=== PATIENT | female | born 1970 | race American Indian/Alaskan Native ===

== ENCOUNTER → 2018-06-02 08:38 | Outpatient (CLI) | payer OTHER, SELFPAY ==
--- NOTE | 2018-06-02 | DI.RAD.S_ITS ---
PROCEDURE: XR LUMBAR SPINE 2-3V INDICATIONS: Lumbago with sciatica, right side TECHNIQUE: 3 views of the lumbar spine were acquired. COMPARISON: None. FINDINGS: Bones: There is appearance of transitional anatomy with lumbarization of what appears to be first sacral vertebral body. For purposes of this examination, lumbar vertebral bodies are labeled one through 5. Prior to any surgical intervention, full x-ray spine series is recommended for more accurate assessment and numbering. Minimal disc space narrowing is noted L1-L2, L2-3, L3-4 and L5-S1. Mild foraminal narrowing is noted at L5-S1 and S1-S2. No vertebral body compression fractures. No suspicious bony lesions. Soft tissues: Overlying bowel gas pattern is normal. No suspicious soft tissue calcifications. IMPRESSION: 1. Early degenerative changes as noted above. Transitional anatomy is present. Dictated by: Adele Ramírez M.D. on 06/02/2018 at 10:53 Approved by: Adele Ramírez M.D. on 06/02/2018 at 10:57
== END ==
PROVIDERS: PCP Physician Assistant; Visit Provider Chiropractor
DX: M54.41 Lumbago with sciatica, right side (principal); M99.03 Segmental and somatic dysfunction of lumbar region; M48.07 Spinal stenosis, lumbosacral region; M48.08 Spinal stenosis, sacral and sacrococcygeal region
CPT/HCPCS: 72100

== ENCOUNTER → 2018-10-15 14:13 | Outpatient (CLI) | payer OTHER, SELFPAY ==
--- NOTE | 2018-10-15 | DI.MG.S_ITS ---
BILATERAL DIGITAL SCREENING MAMMOGRAM 3D/2D WITH CAD: 10/15/2018 CLINICAL: Routine screening. Comparison is made to exams dated: 09/05/2016 mammogram, 05/11/2015 mammogram, and 04/21/2014 mammogram - [facility]. There are scattered fibroglandular elements in both breasts. Current study was also evaluated with a Computer Aided Detection (CAD) system. No significant masses, calcifications, or other findings are seen in either breast. There has been no significant interval change. IMPRESSION: NEGATIVE There is no mammographic evidence of malignancy. A 1 year screening mammogram is recommended. This exam was interpreted at Station ID: [id number]. NOTE: For mammograms, a report in lay terms will be sent to the patient. Approximately 15% of breast malignancies will not be visualized mammographically. In the management of a palpable breast mass, a negative mammogram must not discourage biopsy of a clinically suspicious lesion. Electronically Signed By: Andrzej Layne M.D. at/thomas:10/15/2018 14:57:21 letter sent: Normal Exam ACR BI-RADS Category 1: Negative 3341F
== END ==
PROVIDERS: PCP Physician Assistant; Visit Provider Physician Assistant
DX: Z12.31 Encounter for screening mammogram for malignant neoplasm of breast (principal)
CPT/HCPCS: 77063; 77067

== ENCOUNTER → 2018-11-03 15:58 | Outpatient (CLI) | payer OTHER, SELFPAY ==
--- NOTE | 2018-11-03 | DI.RAD.S_ITS ---
PROCEDURE: XR KNEE RT 3V INDICATIONS: RIGHT KNEE PAIN TECHNIQUE: 3 views of the knee were acquired. COMPARISON: [facility], , KNEE 3V RIGHT, 03/21/2015, 14:00. FINDINGS: Bones: No fractures or dislocations. No suspicious bony lesions. There is a moderate degree and medial compartment joint space narrowing, at the right knee. No acute trauma. Soft tissues: No joint effusion. No suspicious soft tissue calcifications. IMPRESSION: Moderate medial compartment knee joint osteoarthritis, also previously present in March of 2015 but to a slightly greater degree recently. No effusion or intra-articular loose body found. Dictated by: Александр Causey M.D. on 11/03/2018 at 16:23 Approved by: Александр Causey M.D. on 11/03/2018 at 16:32
== END ==
PROVIDERS: PCP Physician Assistant; Visit Provider Family Medicine
DX: M25.561 Pain in right knee (principal); M17.11 Unilateral primary osteoarthritis, right knee
CPT/HCPCS: 73562

== ENCOUNTER 2019-08-05 06:52 | Day surgery (SDC) | payer OTHER, SELFPAY ==
--- NOTE | 2019-08-05 | PATH_ITS ---
[facility] Accession Number: [id number] . 01 Material submitted: . PART A: colon - COLON POLYP AT 50 CM PART B: colon - COLON POLYP AT 25 CM . 02 Diagnosis: A. Colon, Polyp at 50 cm, Biopsy: Tubular adenoma. . B. Colon, Polyp at 25 cm, Biopsy: Sessile serrated adenoma. MRV 08/08/2019 1305 Local . 02 Electronically signed: . Marina Lainez MD, Pathologist NPI- [id number] . 01 Gross description: . Part A: COLON POLYP AT 50 CM: Received in formalin is 1 fragment(s) of gleason, soft tissue measuring 0.3 x 0.3 x 0.3 cm submitted entirely in 1 cassette(s) Part B: COLON POLYP AT 25 CM: Received in formalin is 1 fragment(s) of gleason, soft tissue measuring 0.3 x 0.3 x 0.3 cm submitted entirely in 1 cassette(s) /QBJ 08/05/2019 2200 Local . 02 Pathologist provided ICD-10: D12.6 . 02 CPT . 812068, 286108 Performed at: 01 [facility] [address], [place], [place] [id number] MD Anthony Garrido MD Phone: [phone] Performed at: 02 [facility] [address] [place], [place] [id number] MD Marina Lainez MD Phone: [phone]
[2019-08-05] MEDS: SODIUM CHLORIDE 0.9% 1,000 ML 200 ML IV (07:17)
[2019-08-05 07:18] VITALS: BP 150/81; PULSE 101; RESP 16; TEMP 36.1; O2SAT 97
[2019-08-05 07:27] VITALS: BMI 63.6
--- NOTE | 2019-08-05 07:52 | PM.HP.1 ---
History of Present Illness History of Present Illness Date Patient Seen: 08/05/19 Time Patient Seen: 07:52 Chief complaint: [id number] Narrative: This is a 49-year-old woman with history of MACARENA on CPAP, super morbid obesity, BMI 63, type 2 diabetes, hypertension, and hypothyroid. She has never had a screening colonoscopy. She denies any melena, hematochezia, unexplained weight loss, or unexplained abdominal pain. She says her mother had colon polyps but was not told that any of them were advanced. ROS: Thirteen system review is otherwise negative other than as mentioned below and in HPI. PE: GENERAL: Well groomed and cooperative. Appears stated age. Morbidly obese. Answers questions promptly and appropriately. Vital signs noted. HENT: Normocephalic, atraumatic. Hearing intact. Oral mucosa is pink and moist. EYES: Conjunctiva pink, sclera white, no periorbital swelling. CARDIOVASCULAR: Regular rate. No pedal edema. RESPIRATORY: Non-tachypneic, breathing comfortably on room air. GASTROINTESTINAL: Abdomen soft and non-distended; obese, rounded, no hernias, well-healed incision scar GENITALURINARY: No flank tenderness. MUSCULOSKELETAL: Equal tone and mass bilaterally. SKIN: Warm, dry, soft, appropriate color for ethnicity. No other lesions, rashes, or wounds. NEURO: Alert and Oriented X 3. No gross sensory deficits, or cognitive issues. PSYCH: Appropriate affect and mood. Patient History Surgical History History of (Acute) History of cholecystectomy (Inactive) History of hysterectomy (Acute) Family & Social History Tobacco & Substance use: Smoking Status Former smoker alcohol intake never Substance Use Type does not use Meds Home Medications and Allergies Home Medications Medication Instructions Recorded Confirmed Type atenolol 100 mg PO DAILY #0 05/18/11 08/05/19 History levothyroxine [Synthroid] 25 mcg PO DAILY #0 05/18/11 08/05/19 History metformin [Glucophage XR] 500 mg PO DAILY #0 05/18/11 08/05/19 History Allergies Allergy/AdvReac Type Severity Reaction Status Date / Time Sulfa (Sulfonamide Allergy Intermediate Verified 08/05/19 07:33 Antibiotics) [SULFA (SULFONAMIDE ANTIBIOTICS)] Exam Vital Signs (past 8 hours): - 08/05/19 07:18 Temperature 97 F L Pulse Rate 101 H Respiratory Rate 16 Blood Pressure 150/81 H Pulse Oximetry 97 Oxygen Delivery Method Room Air Assessment & Plan Assessment and plan (1) At average risk for colon cancer: Current visit: Yes Status: Acute Assessment & Plan narrative: This is a 49-year-old woman here for screening colonoscopy. Risks and benefits of colonoscopy were explained including bleeding, perforation, need for additional procedures, risks of anesthesia. I explained to the patient that due to her BMI and sleep apnea she will need an anesthesiologist present for her procedure. We will delay the procedure until the anesthesiologist comes and is available for the procedure. The patient is in agreement with this plan. Plan: Screening colonoscopy with monitored anesthesia care Time Spent With Patient Time with patient: 15-24 minutes Quality VTE Deep Vein Thrombosis/Pulmonary Embolism Present on Admission: No
--- NOTE | 2019-08-05 09:04 | PM.OP.ENDO ---
Operative Date/Time/Diagnoses Date of procedure: 08/05/19 Time of procedure: 09:04 Pre-op diagnosis: Average risk for colon cancer Post-op diagnosis: other (Colon polyps, internal hemorrhoids, diverticulosis) Procedure & Clinicians Study performed: Screening colonoscopy, polypectomy x2 with cold forceps and hot Same procedure as scheduled: Yes Indications: Average risk for colon cancer, at age for 1st screening Surgeon: Amanda Celaya Procedure Notes SCOAP/Timeout: Performed Procedure in detail: The patient was brought to the room and placed in left lateral decubitus position with all bony prominences padded. A time-out was performed and then the patient was given procedural sedation by Dr. Brito. Vitals were monitored throughout the procedure and remained stable. Once adequately sedated the procedure was begun. A rectal exam was performed revealing [no abnormalities]. The colonoscope was then introduced to the rectum and advanced to the cecum in the usual fashion. []The cecum was identified by the appendiceal orifice, the mucosal tri-fold, and the ileocecal valve. The scope was then retracted while rotating side to side and examining each mucosal fold. [2 polyps were found, 1 at 50 cm, and 1 at 25 cm. Both were removed completely. The 1 at 50 cm was removed with cold forceps, was about 3 mm, and appeared hyperplastic, and the 1 at 25 cm was less than 5 mm incise, removed with hot snare, and appeared adenomatous.] Low-grade diverticulosis seen throughout the sigmoid colon, with thickened mucosa consistent with a prior episode of diverticulitis. At the conclusion of the procedure retroflexion was performed and [small grade 1-2 internal hemorrhoids without stigmata of bleeding were seen]. The scope was then withdrawn from the rectum the procedure was concluded. The patient tolerated the procedure well and was transferred to the PACU in stable condition. Scope withdrawal time: 12 Sedation minutes: 20 Findings: diverticulosis, internal hemorrhoids and polyp (X2) Specimen(s): other (hyperplastic appearing polyp from 50 cm, and adenomatous appearing polyp from 25 cm) Complications: none Impression: Polyps, diverticulosis, hemorrhoids Post-procedure Recommendations: Colonscopy in 10 years (As long as pathology is non neoplastic) Follow up: as needed Disposition: PACU
[2019-08-05 09:07] VITALS: BP 142/79; PULSE 76; RESP 19; TEMP 37.1; O2SAT 98
[2019-08-05 09:12] VITALS: BP 145/84; PULSE 76; RESP 12; O2SAT 98
[2019-08-05 09:17] VITALS: BP 131/63; PULSE 78; RESP 19; O2SAT 99
[2019-08-05 09:27] VITALS: BP 136/61; PULSE 82; RESP 14; O2SAT 97
[2019-08-05 09:30] VITALS: BP 126/65; PULSE 81; RESP 14; O2SAT 98
== END 2019-08-05 09:39 | disposition home or self-care (01) ==
PROVIDERS: PCP Physician Assistant; Visit Provider Surgery
PROC: 0DJD8ZZ Inspection of Lower Intestinal Tract, Via Natural or Artificial Opening Endoscopic (ICD-10-PCS; CPT 45378; principal; 2019-08-05 07:45)
DX: Z12.11 Encounter for screening for malignant neoplasm of colon (principal); I10 Essential (primary) hypertension; E11.9 Type 2 diabetes mellitus without complications; M35.00 Sjogren syndrome, unspecified; G47.33 Obstructive sleep apnea (adult) (pediatric); J45.909 Unspecified asthma, uncomplicated; E03.9 Hypothyroidism, unspecified; E66.01 Morbid (severe) obesity due to excess calories; Z68.44 Body mass index [BMI] 60.0-69.9, adult; Z79.84 Long term (current) use of oral hypoglycemic drugs; Z87.891 Personal history of nicotine dependence; K64.0 First degree hemorrhoids; D12.6 Benign neoplasm of colon, unspecified
CPT/HCPCS: 45385; 45380; 99152; J2250; J2704

== ENCOUNTER → 2020-04-20 15:03 | Outpatient (CLI) | payer OTHER, SELFPAY ==
--- NOTE | 2020-04-20 | DI.RAD.S_ITS ---
PROCEDURE: XR FOOT RT 2V INDICATIONS: Chronic pain in Rt Foot TECHNIQUE: 2 views of the foot were acquired. COMPARISON: [facility], CR, XR FOOT LT 2V, 04/20/2020, 15:05. [facility], CR, FOOT 3V LEFT, 08/18/2006, 11:30. FINDINGS: Bones: No fractures or dislocations. No suspicious bony lesions. As was seen on the left there is relative prominence of the plantar fascia and Achilles tendon insertion spurs, but no prior trauma or significant degenerative osteoarthritis is seen. Soft tissues: No tibiotalar joint effusion. Achilles tendon appears normal. IMPRESSION: Tendon insertion spurring equivalent to that on the left, no acute disease is found. Dictated by: Александр Causey M.D. on 04/20/2020 at 15:48 Approved by: Александр Causey M.D. on 04/20/2020 at 15:49
--- NOTE | 2020-04-20 | DI.RAD.S_ITS ---
PROCEDURE: XR FOOT LT 2V INDICATIONS: Chronic pain in Lt Foot TECHNIQUE: 2 views of the foot were acquired. COMPARISON: [facility], CR, FOOT 3V LEFT, 08/18/2006, 11:30. FINDINGS: Bones: No fractures or dislocations. No suspicious bony lesions. Note is made of relatively prominent plantar fascia and Achilles tendon insertion spurs. Soft tissues: No tibiotalar joint effusion. Achilles tendon appears normal. IMPRESSION: No trauma found. Plantar fascia and Achilles tendon prominent insertion spurs noted. No significant degenerative osteoarthritic change is found. Dictated by: Александр Causey M.D. on 04/20/2020 at 15:46 Approved by: Александр Causey M.D. on 04/20/2020 at 15:48
== END ==
PROVIDERS: PCP Family Medicine; Referring Provider Family Medicine; Visit Provider Family Medicine
DX: M79.671 Pain in right foot (principal); M79.672 Pain in left foot
CPT/HCPCS: 73620

== ENCOUNTER → 2022-11-14 15:20 | Outpatient (CLI) | payer OTHER, SELFPAY ==
--- NOTE | 2022-11-14 | DI.MG.S_ITS ---
BILATERAL DIGITAL SCREENING MAMMOGRAM 3D/2D WITH CAD: 11/14/2022 CLINICAL: Routine screening. Comparison is made to exams dated: 10/15/2018 mammogram, 09/05/2016 mammogram, and 05/11/2015 mammogram - [facility]. There are scattered areas of fibroglandular density in both breasts (category b / 25%-50% glandular tissue). Current study was also evaluated with a Computer Aided Detection (CAD) system. No significant masses, calcifications, or other findings are seen in either breast. There has been no significant interval change. IMPRESSION: NEGATIVE There is no mammographic evidence of malignancy. A 1 year screening mammogram is recommended. Based on the Tyrer Cuzick model (a risk assessment model) the patient's lifetime risk is 8.1% and her 10 year risk is 2.3%. According to the ACR, ACS, and NCCN guidelines, an annual breast MRI exam along with mammogram is recommended if the patient's lifetime risk is 20% or greater. This exam was interpreted at Station ID: [id number]. NOTE: For mammograms, a report in lay terms will be sent to the patient. Approximately 15% of breast malignancies will not be visualized mammographically. In the management of a palpable breast mass, a negative mammogram must not discourage biopsy of a clinically suspicious lesion. Electronically Signed By: Andrzej randolph/thomas:11/17/2022 07:25:36 letter sent: Normal Exam ACR BI-RADS Category 1: Negative 3341F
== END ==
PROVIDERS: PCP Physician Assistant; Referring Provider Physician Assistant; Visit Provider Physician Assistant
DX: Z12.31 Encounter for screening mammogram for malignant neoplasm of breast (principal)
CPT/HCPCS: 77063; 77067

== ENCOUNTER → 2025-03-17 12:50 | Outpatient (CLI) | payer OTHER, SELFPAY ==
--- NOTE | 2025-03-17 12:53 | DI.MG.S_ITS ---
MM screening mammo BI: 03/17/2025. BI-RADS: 1 CLINICAL: 54-year old female for bilateral screening mammogram. Tyrer-Cuzick lifetime risk of 9.7%. No personal or first-degree family history of breast cancer. PRIOR EXAMS 11/14/2022, 10/15/2018, 09/05/2016, 05/11/2015. MAMMOGRAPHY TECHNIQUE: 2D and 3D (tomosynthesis) digital mammographic views obtained, with additional images as needed for full coverage. Current study was also evaluated with a Computer Aided Detection (CAD) system. DENSITY B. There are scattered areas of fibroglandular density. MAMMOGRAPHY FINDINGS Bilateral: No suspicious mass, asymmetry, microcalcification, or other abnormality seen. IMPRESSION: * No evidence of malignancy. RECOMMENDATIONS Bilateral * Annual screening mammography. OVERALL ASSESSMENT CATEGORY BI-RADS-1: Negative. The [employer] recommends annual screening mammography beginning at age 40 for women with average risk of breast cancer. ELECTRONICALLY SIGNED: Maria Luz Gabriel M.D. on 03/17/2025 at 10:39:45 PM PT Interpreting Station ID: [id number]
== END ==
PROVIDERS: PCP Physician Assistant; Referring Provider Physician Assistant; Visit Provider Physician Assistant
DX: Z12.31 Encounter for screening mammogram for malignant neoplasm of breast (principal)
CPT/HCPCS: 77063; 77067